=== PATIENT | female | born 1950 | race Native Hawaiian/Other Pacific Islander ===

== ENCOUNTER 2019-02-12 23:12 | Emergency (ER) | payer OTHER ==
[~2019-02-12] VITALS: Ht 162.6 cm; Wt 56.7 kg
[2019-02-13 00:29] VITALS: BP 146/99; TEMP 97.7
== END 2019-02-13 00:29 | disposition home or self-care (01) ==
LOC: ED 23:12
PROC: 0H9DXZZ Drainage of Right Lower Arm Skin, External Approach (ICD-10-PCS; principal; 2019-02-12)
DX: L02.413 Cutaneous abscess of right upper limb (principal)
CPT/HCPCS: 87070; 87077; 87185; 87186; 87205; 99283